=== PATIENT | female | born 1965 | race Caucasian/White ===

== ENCOUNTER → 2016-09-22 | Outpatient (REF) | payer BC ==
[~2016-09-22] MED LIST: BUPR15TA; ESTR3TA
== END ==
LOC: M LAB REF 10:28
PROVIDERS: ATTEND Nurse Practitioner Family
DX: L60.3 Nail dystrophy (principal)

== ENCOUNTER → 2017-12-15 | Outpatient (CLI) | payer OTHER | LOC: M WHC 08:26 | DX: Z12.31 Encounter for screening mammogram for malignant neoplasm of breast (principal); N60.31 Fibrosclerosis of right breast; N60.32 Fibrosclerosis of left breast | CPT/HCPCS: 77067 ==

== ENCOUNTER → 2018-12-27 | Outpatient (CLI) | payer OTHER ==
--- NOTE | 2018-12-27 11:26 | REPMRS ---
Patient History The patient states she had a clinical breast exam in 10/2018. Family history of breast cancer at age 50 or over in maternal aunt, prostate cancer at age 50 or over in father. 3D TOMOSYNTHESIS WAS PERFORMED. [facility]%. Digital Woman Screen Mammo: December 27, 2018 - Exam #: [id number] Bilateral CC and MLO view(s) were taken. Technologist: Kira Diallo, Technologist Prior study comparison: December 15, 2017, bilateral digital woman screen mammo performed at [facility]. November 28, 2014, digital woman screen mammo performed at [facility]. FINDINGS: The breast tissue is heterogeneously dense. This may lower the sensitivity of mammography. There has been no change in the appearance of the mammogram from the prior studies. There is a moderate amount of residual fibroglandular tissue which is fairly symmetric. There is no interval development of dominant mass, areas of architectural distortion, or clustered microcalcification typical of malignancy. Assessment: BI-RADS/ACR category 1 mammogram. Negative Mammogram. Recommendation Routine screening mammogram in 1 year (for women over age 40). This mammogram was interpreted with the aid of an FDA-approved computer-aided dectection system. Electronically Signed By: Rosales Martinez MD 12/27/18 [id number]
--- NOTE | 2018-12-28 14:41 | DEXA ---
AP SPINE L1 - L4 0.996 -1.6 -0.8 LT FEMUR TOTAL 0.940 -0.5 0.1 LT NECK 0.875 -1.2 -0.2 RT FEMUR TOTAL 0.923 -0.7 0.0 RT NECK 0.922 -0.8 0.2 TOTAL BODY TOTAL OTHER COMMENTS: Normal bone densitometry of the right hip. There is low bone density of the spine. There is low bone density of the left hip. FOLLOW-UP: Recommendation for the next bone density exam: 2 years. CURTIS
== END ==
LOC: M WHC 10:24
PROVIDERS: ATTEND Nurse Practitioner Family
DX: Z12.31 Encounter for screening mammogram for malignant neoplasm of breast (principal); M85.80 Other specified disorders of bone density and structure, unspecified site

== ENCOUNTER → 2020-03-21 | Outpatient (CLI) | payer OTHER ==
--- NOTE | 2020-03-21 09:16 | REPMRS ---
Patient History The patient states she had a clinical breast exam in 01/2020 Family history of breast cancer at age 50 or over in maternal aunt, prostate cancer at age 50 or over in father. 3D TOMOSYNTHESIS WAS PERFORMED. The Delroy Simpson lifetime risk for breast cancer is 10.8%. Volpara breast density b. Digital Woman Screen Mammo: March 21, 2020 - Exam #: [id number] Bilateral CC and MLO view(s) were taken. Technologist: Lottie Cintron, Technologist Prior study comparison: December 27, 2018, bilateral digital woman screen mammo performed at [facility]. December 15, 2017, bilateral digital woman screen mammo performed at [facility]. FINDINGS: The breast tissue is heterogeneously dense. This may lower the sensitivity of mammography. There has been no change in the appearance of the mammogram from the prior studies. There is a moderate amount of residual fibroglandular tissue which is fairly symmetric. There is no interval development of dominant mass, areas of architectural distortion, or clustered microcalcification typical of malignancy. Assessment: BI-RADS/ACR category 1 mammogram. Negative Mammogram. Recommendation Routine screening mammogram in 1 year (for women over age 40). This mammogram was interpreted with the aid of an FDA-approved computer-aided dectection system. Electronically Signed By: Rosales Martinez MD 03/21/20 0916
== END ==
LOC: M WHC 07:55
PROVIDERS: ATTEND Registered Nurse
DX: Z12.31 Encounter for screening mammogram for malignant neoplasm of breast (principal)

== ENCOUNTER → 2021-02-07 | Outpatient (CLI) | payer OTHER ==
--- NOTE | 2021-02-07 09:52 | REP ---
INDICATION: PAIN. COMPARISON: None. FINDINGS: The joint spaces are symmetric and relatively well maintained. There are degenerative changes seen involving the D IP joints. There is no evidence of acute fracture or destructive osseous lesion. IMPRESSION: No acute osseous abnormality. <Electronically signed by Frank Washington > 02/07/21 [id number]
--- NOTE | 2021-02-07 09:53 | REP ---
INDICATION: PAIN. COMPARISON: None. TECHNIQUE: Four views FINDINGS: There is no acute fracture, dislocation, or subluxation. There is no evidence of a destructive osseous lesion. IMPRESSION: No acute osseous abnormality. <Electronically signed by Frank Washington > 02/07/21 0987
== END ==
LOC: M WUC 08:52
PROVIDERS: ATTEND Physician Assistant Medical
DX: M25.531 Pain in right wrist (principal); M25.532 Pain in left wrist

== ENCOUNTER → 2021-04-29 | Outpatient (CLI) | payer OTHER | LOC: M WHC 08:50 | PROVIDERS: ATTEND Physician Assistant Medical | DX: Z12.31 Encounter for screening mammogram for malignant neoplasm of breast (principal); Z80.3 Family history of malignant neoplasm of breast; Z80.42 Family history of malignant neoplasm of prostate ==

== ENCOUNTER → 2023-10-13 | Outpatient (CLI) | payer OTHER | LOC: M WHC 07:58 | PROVIDERS: ATTEND Physician Assistant Medical | DX: Z12.31 Encounter for screening mammogram for malignant neoplasm of breast (principal); R92.323 Mammographic fibroglandular density, bilateral breasts ==